=== PATIENT | female | born 1955 | race Caucasian/White ===

== ENCOUNTER → 2021-10-06 15:00 | Outpatient (CLI) | payer OTHER, SELFPAY ==
[2021-10-06 15:18] LABS: Basophils # 0.1 K/mm3 (0-0.2); Basophils % 0.6 % (0.1-2.0); Eosinophils # 0.2 K/mm3 (0.0-0.4); Eosinophils % 1.4 % (0.1-12.0); Hematocrit 42.6 % (37.0-47.0); Hemoglobin 13.7 g/dL (12.2-16.2); Lymphocytes # 2.3 K/mm3 (0.7-4.5); Lymphocytes % 18.6 % (10-50); Mean Corpuscular HGB Conc 32.1 g/dL (31.8-35.4); Mean Corpuscular Hemoglobin 31.9 pg (27.0-31.2); Mean Corpuscular Volume 99.4 fl (81-99); Mean Platelet Volume 7.6 fl (7.4-10.4); Monocytes # 0.8 K/mm3 (0.1-1.0); Monocytes % 6.4 % (1.7-9.3); Neutrophils # 8.9 K/mm3 (1.8-7.8); Platelet Count 269 K/mm3 (142-424); Red Blood Count 4.29 M/mm3 (4.20-5.40); Red Cell Distribution Width 13.2 % (11.5-17.5); White Blood Count 12.2 K/mm3 (4.8-10.8)
[2021-10-06 16:02] LABS: Alanine Aminotransferase 28 U/L (12-78); Albumin Level 4.5 g/dl (3.5-5.0); Alkaline Phosphatase 93 U/L (38-126); Anion Gap 13.2 mEq/L (5-15); Aspartate Amino Transferase 27 U/L (14-36); Bilirubin,Direct 0.1 mg/dl (0.0-0.4); Bilirubin,Indirect 0.6 mg/dL (0.0-0.9); Bilirubin,Total 0.7 mg/dl (0.2-1.3); Bilirubin,Unconjugated 0.6 mg/dL (0.0-1.1); Blood Urea Nitrogen 21 mg/dl (7-17); Calcium 9.7 mg/dl (8.4-10.2); Carbon Dioxide 27 mmol/L (22.0-30.0); Chloride 99 mmol/L (98-107); Chol/HDL Ratio 3.4 (1-3.5); Cholesterol 240 mg/dl (140-200); Estimated Glomerular Filt Rate 72 ml/min (>60); GFR (African American) 87 ML/MIN (>60); Glucose 102 mg/dl (74-100); HDL Cholesterol 70 mg/dl (40-60); Potassium 4.2 mmoL/L (3.5-5.1); Sodium 135 mmol/L (136-145); Total Protein,Serum 6.7 g/dl (6.3-8.2); Triglycerides 227 mg/dl (30-150); VLDL Cholesterol 45 mg/dL (0-40)
[2021-10-06 16:14] LABS: Direct LDL Cholesterol 136.94 mg/dL (100-129)
[2021-10-06 16:21] LABS: Free T4 (Free Thyroxine) 0.75 ng/dl (0.78-2.19)
[2021-10-06 16:32] LABS: Thyroid Stimulating Hormone 2.96 uIU/mL (0.465-4.68)
== END ==
PROVIDERS: Visit Provider Urology
DX: R06.00 Dyspnea, unspecified (principal); I11.0 Hypertensive heart disease with heart failure; I50.9 Heart failure, unspecified; R00.2 Palpitations; E78.5 Hyperlipidemia, unspecified; G47.33 Obstructive sleep apnea (adult) (pediatric); Z72.0 Tobacco use; Z99.89 Dependence on other enabling machines and devices
CPT/HCPCS: 36415; 80048; 80061; 80076; 84439; 84443; 85025

== ENCOUNTER → 2021-10-13 07:10 | Outpatient (CLI) | payer OTHER, SELFPAY ==
--- NOTE | 2021-10-13 | CA_ITS ---
APPROVED REPORT Exam: Pharmacologic Technologist: Elisa Lora Ht: 5 ft 3 in Wt: 187 lbs BSA: 1.88 m2 HR: 60 bpm BP: 164/83 mmHg Indications: Shortness of Breath, Abnormal EKG Medical History Medications: Propranolol,,,,, Pravastatin,,,,, Vitamin D3,,,,, Losartan,,,,, SyMBICORT,,,,, Albuterol,,,,, Montelukast,,,,, ZYRTEC,,,,, Famotidine,,,,, Tizanidine,,,,, Esomeprazole,,,,, LaMotrigine,,,,, Stress Test Details Test: LEXISCAN HR Resting HR: 63 bpm Max Heart Rate (APMHR): 156.433411 bpm Max HR Achieved: 90 bpm Target HR (85% APMHR): 132.538991 bpm % of APMHR: 57.69 Recovery HR: 74 bpm BP Resting BP: 164.0/83.0 mmHg Max BP: 170.0/78.0 mmHg Recovery BP: 156.0/78.0 mmHg ECG Resting ECG: Normal sinus rhythm, NS ST abnormalities inferiorly. Clinical Exercise duration: 04:18 min Highest Stage Achieved: Exercise capacity: 1.0 METs Stress ECG Conclusion Symptoms: Swimmy headed. No shortness of air or chest pain. Arrhythmias/Ectopy: None ST-T Changes: Exaggeration of baseline ST abnormalities. Conclusion: Non-diagnostic Lexiscan stress. Myoview images reported separately. Electronically signed by : Oni Mendoza MD 10/13/2021 19:51:48
--- NOTE | 2021-10-13 07:11 | NM_ITS ---
APPROVED REPORT Exam: Nuclear Stress Test Indication: HTN, HYPERLIPIDEMIA, TOB USE, FM HX, SOB, PALPITATIONS, FATIGUE, ABN EKG Patient Location: Outpatient Stress Tech: Elisa Lora [place] Tech:Naomi Christopher BOBO RT (R)(N)(M) Ht: 5 ft 3 in Wt: 187 lbs Bra Size: 40B HR: 60 bpm BP: 164/83 mmHg BSA: 1.88 m2 BMI: 33.1 History: HTN, HYPERLIPIDEMIA, TOB USE, FM HX, SOB, PALPITATIONS, FATIGUE, ABN EKG Procedure: Patient received a 0.4 mg of intravenous Lexiscan, resting heart rate 60 bpm, resting blood pressure 164/83 mmHg, with Lexiscan maximum heart rate achived was 80 bpm which is Less than 85 % of the maximum predicted heart rate and blood pressure was 170/78 mmHg. With Lexiscan, patient denied any complaint of chest pain. Electrocardiogram Resting electrocardiogram shows sinus rhythm, with Lexiscan there is less than 1.[address] segment depression noted from the baseline EKG. The EKG portion of the Lexiscan is nondiagnostic. Cardiac Stress and Resting SPECT Images: Cardiac Stress and Resting SPECT images were obtained using technetium 99m Myoview 31.8 mCi stress and 10.73 mCi at rest. Gated SPECT for analysis of segmental wall motion and calculation of the ejection fraction also done. Prone images were also obtained. Cardiac stress and rest SPECT images show uniform myocardial activity without segmental perfusion abnormality, computer derived ejection fraction is 66% with no regional wall motion abnormality, right ventricle is normal size and contractility. Conclusion: 1. The EKG portion of the Lexiscan is nondiagnostic. 2. No scintigraphic evidence of reversible ischemia seen, computer derived ejection fraction is 66% with no regional wall motion abnormality, right ventricle is normal size and contractility. 3. Normal Lexiscan Myoview study. Electronically signed by : Oni Mendoza MD 10/13/2021 19:57:58
--- NOTE | 2021-10-13 09:03 | CA_ITS ---
APPROVED REPORT EXAM: Comprehensive 2D, Doppler, and color-flow Echocardiogram Glass Presser: Gudelia Valero RT(R) Ht: 5 ft 3 in Wt: 188lbs BSA: 1.88 BP: 139/77 mmHg Indications: SOA, HTN, smoker, palpitations, hyperlipidemia, ABN EKG, CHF, TAVON, GERD 2D Dimensions LVOT 1.97 cm (M/F) 1.5-2.5 LA Volume 32.10 mL LA Volume Index 17.07 mL/m2 (M/F) 16-34 M-Mode Dimensions RVDd 2.39 cm (0.9-2.6) LA Diam 3.81 cm (1.9-4.0) LVDd 5.17 cm (3.5-5.7) Ao Diam 2.67 cm (2.0-3.7) LVDs 3.50 cm (3.5-5.7) IVSd 0.95 cm (0.6-1.1) PWd 0.61 cm (0.6-1.1) EF (Teich) 60.20% FS 32.30% EDV (Teich) 127.80 mL ESV (Teich) 50.90 mL LV Diastology E Decel Time 193.00 (160-240 msec) E/A Ratio 0.9 MED E' 9.20 (< 7 cm/sec) E'/MED E' Ratio 9.90 (>14) LAT E' 7.10 (<10 cm/sec) E/LAT E' Ratio 12.83 (>14) Mitral Valve MV E Max [place]air. 91.00 (40-130 cm/s) MV A Velocity 104.00 (40-130 cm/s) E/A Ratio 0.88 MV Decel. Time 193.00 (160-240 ms) MV PHT 57.00 ms Left Ventricle Left atrium is mildly enlarged, left ventricle is normal size, mild concentric left ventricular hypertrophy, visually estimated ejection fraction 55% with no regional wall motion abnormality, grade 1 diastolic dysfunction seen without tissue Doppler evidence of raise left atrial pressure. Right Ventricle Right atrium and right ventricle are normal size and contractility. Aortic Valve Aortic valve is minimally thickened and fibrosed, there is no aortic stenosis or aortic insufficiency. Mitral Valve Mitral valve grossly normal, there is trace mitral regurgitation. Tricuspid Valve Tricuspid grossly normal, there is trace tricuspid regurgitation, tricuspid regurgitation jet velocity is inadequate for calculation of the right ventricular systolic pressure. Pulmonic Valve Pulmonic valve is poorly visualized. Great Vessels Aortic root is normal size. Inferior vena cava is normal size with normal inspiratory collapse. Pericardium No significant pericardial effusion noted. Conclusion 1. Mildly enlarged left atrium, normal left ventricular size, mild concentric left ventricular hypertrophy, visually estimated ejection fraction 55% with no regional wall motion abnormality, grade 1 diastolic dysfunction seen without tissue Doppler evidence of raise left atrial pressure. 2. Trace mitral and tricuspid regurgitation. 3. No significant pericardial effusion noted. 4. Inferior vena cava is normal size with normal inspiratory collapse. Electronically signed by : Oni Mendoza MD 10/13/2021 19:35:44
== END ==
PROVIDERS: PCP Family Medicine; Visit Provider Urology
DX: R06.00 Dyspnea, unspecified (principal); R00.2 Palpitations; I50.9 Heart failure, unspecified; I11.0 Hypertensive heart disease with heart failure; E78.5 Hyperlipidemia, unspecified; G47.33 Obstructive sleep apnea (adult) (pediatric); Z72.0 Tobacco use; Z99.89 Dependence on other enabling machines and devices
CPT/HCPCS: 78452; 93017; 93306; A9502; J2785

== ENCOUNTER → 2022-02-14 09:56 | Outpatient (CLI) | payer OTHER, SELFPAY ==
[2022-02-14 11:15] VITALS: PULSE 72; PULSE 78
[2022-02-21 17:24] LABS: D001-IgE D pteronyssinus <0.10 kU/L (Class 0); D002-IgE D farinae <0.10 kU/L (Class 0); E001-IgE Cat Dander 0.97 kU/L (Class II); E005-IgE Dog Dander <0.10 kU/L (Class 0); E072-IgE Mouse Urine <0.10 kU/L (Class 0); G002-IgE Bermuda Grass <0.10 kU/L (Class 0); G006-IgE Timothy Grass <0.10 kU/L (Class 0); I006-IgE Cockroach, German <0.10 kU/L (Class 0); Immunoglobulin E, Total 16 IU/mL (6-495); M001-IgE Penicillium chrysogen <0.10 kU/L (Class 0); M002-IgE Cladosporium herbarum <0.10 kU/L (Class 0); M003-IgE Aspergillus fumigatus <0.10 kU/L (Class 0); M006-IgE Alternaria alternata <0.10 kU/L (Class 0); T001-IgE Maple/Box Elder <0.10 kU/L (Class 0); T003-IgE Common Silver Birch <0.10 kU/L (Class 0); T006-IgE Cedar, Mountain <0.10 kU/L (Class 0); T007-IgE Oak, White <0.10 kU/L (Class 0); T008-IgE Elm, American <0.10 kU/L (Class 0); T010-IgE Walnut <0.10 kU/L (Class 0); T011-IgE Maple Leaf Sycamore <0.10 kU/L (Class 0); T014-IgE Cottonwood <0.10 kU/L (Class 0); T015-IgE Ash, White <0.10 kU/L (Class 0); T022-IgE Pecan, Hickory <0.10 kU/L (Class 0); T070-IgE White Mulberry <0.10 kU/L (Class 0); W001-IgE Ragweed, Short <0.10 kU/L (Class 0); W011-IgE Thistle, Russian <0.10 kU/L (Class 0); W014-IgE Pigweed, Common <0.10 kU/L (Class 0); W018-IgE Sheep Sorrel <0.10 kU/L (Class 0)
== END ==
PROVIDERS: PCP Family Medicine; Visit Provider Internal Medicine Pulmonary Disease
DX: R06.00 Dyspnea, unspecified (principal)
CPT/HCPCS: 36415; 82785; 86003; 94060; 94618; 94640; 94727; 94729